=== PATIENT | male | born 1990 | race Caucasian/White ===

== ENCOUNTER 2018-10-18 15:52 | Emergency (ER) | payer BC ==
[2018-10-18 16:02] VITALS: BP 135/91; PULSE 65; TEMP 98.2; BMI 29.6
--- NOTE | 2018-10-18 16:42 | PDOC ---
History of Present Illness - General Chief Complaint: Pain Stated Complaint: RIGHT EAR ACHE 5 DAYS Time Seen by Provider: 10/18/18 16:23 History Source: Patient Exam Limitations: No Limitations - History of Present Illness Initial Comments: HPI: 27 y/o male presenting to ER complaining of right ear pain worsening over the past five days. Symptoms started with a painless sense of fullness that has progressed to constant pain in ear and surrounding area. Denies change in pain with position. Denies drainage from the ear. Has not trialed OTC medication for symptoms. Denies recent submersion of head. Denies h/o of ear infections. Endorses frequent Q-Tip usage. PCP: None Medical Hx: - Pt denies past medical history. Denies prescription medications. Surgical Hx: - Pt denies past surgical history. Past History - Past Medical History Allergies/Adverse Reactions: Allergies Allergy/AdvReac Type Severity Reaction Status Date / Time No Known Allergies Allergy Unverified 10/18/18 15:53 Home Medications: Ambulatory Orders Amox-Tr/K Cl [Augmentin - 875Mg Tablet] 1 tab PO BID #14 tablet 10/18/18 Ciprofloxacin HCl/Dexameth [Ciprodex Otic Suspension] 4 drop AD BID 7 Days #1 bottle 10/18/18 COPD: No Other medical history: denies - Suicide/Smoking/Psychosocial Hx Smoking History: Never smoked Information on smoking cessation initiated: No Hx Alcohol Use: Yes (social) Drug/Substance Use Hx: No Review of Systems - Review of Systems Able to Perform ROS?: Yes Comments:: In addition to that documented in the HPI above, the additional ROS was obtained : Constitutional: Denies fevers, chills, or syncope Head: Endorses hearing changes on right side. Denies vision changes ENMT: Denies sore throat or difficulty swallowing CV: Denies chest pain Resp: Denies SOB GI: Denies vomiting or diarrhea : Denies painful urination MSK: Denies recent trauma Skin: Denies new rashes Neuro: Denies new numbness or tingling or weakness Endocrine: Denies polyuria Heme: Denies bleeding or bruising *Physical Exam - Vital Signs Last Vital Signs Temp Pulse Resp BP Pulse Ox 98.2 F 65 16 135/91 99 10/18/18 15:53 10/18/18 15:53 10/18/18 15:53 10/18/18 15:53 10/18/18 15:53 - Physical Exam Comments: Constitutional: Well-developed, well-nourished adult male in no acute distress or obvious discomfort. Found sitting upright on hospital bed. Alert and oriented x4. Answered all questions appropriately and completely. Speech was non -labored, non-pressured. Head: Normocephalic. No obvious external signs of trauma. Eyes: Sclerae white. Ears: Right external auditory canal is erythematous and edematous. Tympanic membrane bulging with effusion. Tenderness when tugging inferiorly on ear lobe. No tenderness to mastoid process. Left external auditory canal unremarkable. Hearing grossly intact. Nose: No nasal discharge. Throat: Oral cavity and pharynx normal. No inflammation, swelling, exudate, or lesions. Teeth and gingiva in good general condition. Neck: Supple, trachea is midline. Cardiovascular / Chest: Regular rate and regular rhythm. No murmur, rubs, clicks, or gallops. Peripheral pulses: radial pulses full. Respiratory: Breathing unlabored. Equal chest rise and fall. Clear to auscultation bilaterally. No stridor, no wheezing, no rhonchi. Neuro: Alert and oriented. Moving all four extremities spontaneously. Gait normal. Observed walking through the department unassisted without difficulty. Skin: Warm, dry, and intact. Psych: Affect: appropriate. Mood: normal. Moderate Sedation - Procedure Monitoring Vital Signs: Procedure Monitoring Vital Signs Temperature 98.2 F 10/18/18 15:53 Pulse Rate 65 10/18/18 15:53 Respiratory Rate 16 10/18/18 15:53 Blood Pressure 135/91 10/18/18 15:53 O2 Sat by Pulse Oximetry (%) 99 10/18/18 15:53 Medical Decision Making - Medical Decision Making *Reviewed vital signs, nursing notes, and prior visit documentation (if available). 27 y/o male presenting with R ear pain x5 days. Afebrile. Vitals unremarkable for hypotension or tachycardia. Physical exam as described above. Suspect likely otitis externa and media. No signs/symptoms of systemic infection. Will prescribe 7 day course of Augmentin and Ciprodex. First dose of Augmentin and PO Tylenol administered in the department. Discussed physical exam findings with pt. Answered all questions. Provided return precautions. Pt expressed verbal understanding and agreement with plan to discharge home with outpatient follow up. Referred to [facility] resident clinic for PCP. Also provided ENT referral. *DC/Admit/Observation/Transfer Diagnosis at time of Disposition: Otitis media Qualifiers: Otitis media type: unspecified Chronicity: acute Qualified Code(s): H66.90 - Otitis media, unspecified, unspecified ear Otitis externa Qualifiers: Otitis externa type: unspecified type Chronicity: acute Laterality: right Qualified Code(s): H60.501 - Unspecified acute noninfective otitis externa, right ear - Discharge Dispostion Disposition: HOME Condition at time of disposition: Good Decision to Admit order: No - Prescriptions Prescriptions: Amox-Tr/K Cl [Augmentin - 875Mg Tablet] 1 tab PO BID #14 tablet Ciprofloxacin HCl/Dexameth [Ciprodex Otic Suspension] 4 drop AD BID 7 Days #1 bottle - Referrals Referrals: [facility] [place] [Provider Group] Fitz Becerril MD [Staff Physician] - - Patient Instructions Printed Discharge Instructions: DI for Otitis Externa, DI for Ear Pain-Adult Additional Instructions: You were seen today for a right-sided earache. Your have an infection inside of your ear. I have sent two prescriptions to [facility]. The first is for an oral antibiotic and the second is for an antibiotic drop. Use both as directed on the package. I have entered a referral for you to see a primary care physician at [facility] [place] primary care clinic. You will need to call to make an appointment in the next week. The telephone number is [phone]. The address is: [facility] [place] [address] You can also follow up with an Ear, Nose, and Throat physician. I have referred you to Dr. Becerril. You will need to call to make an appointment. The number is included in this packet. You can take over the counter Tylenol or Advil as needed for pain. Take as directed on the package insert. Do not exceed the recommended dosage. Go to the nearest emergency department if your condition worsens or you feel like you need additional emergency evaluation. Print Language: HEBREW - Post Discharge Activity
[2018-10-18] MEDS ORDERED: ACETAMINOPHEN 500 MG TABLET (FP) PO ONE (16:50)
[2018-10-18] MEDS ORDERED: ACETAMINOPHEN 325 MG TABLET (FP) ONE (16:53)
[2018-10-18] MEDS ORDERED: AMOX TR/POT CLAV 875MG/125MG TABLETS (FP) PO ONE (17:22)
--- NOTE | 2018-10-18 17:22 | PDOC ---
Attending Attestation - Resident Resident Name: BishopJulian - ED Attending Attestation I have performed the following: I have examined & evaluated the patient, The case was reviewed & discussed with the resident, I agree w/resident's findings & plan, Exceptions are as noted - HPI HPI: 10/18/18 17:23 27yo male with R ear pain. Pt uses q-tips. No f/c. Pt denies sore throat, rhinorrhea, facial pain. Pt denies neck pain. No cp/sob. No abd pain. No recent travel. No sick contacts. No cough. No tongue elevation. No other complaints. - Physicial Exam PE: 10/18/18 17:24 Gen: aaox3, nad heent: R ear canal with redness and swelling, R tm with bulging and erythema/ effusion, posterior auricular lymph node R, L ear tm intact-no effusion, no redness to ear canal, no vesicles, nares clear, posterior pharynx clear neck: supple, no submandibular swelling, no mastoid ttp heart: +s1s2 reg lungs: cta b/l abd: soft, nt/nd +bs ext: no c/c/e skin: no rashes, no erythema neuro: ambulatory with a steady gait, cn ii-xii grossly intact, no focal findings - Medical Decision Making 10/18/18 17:13 I, Dr. Denita Jacobs, DO, attest that this document has been prepared under my direction and personally reviewed by me in its entirety. I further attest, that it accurately reflects all work, treatment, procedures and medical decision -making performed by me. 10/18/18 17:26 a/p: 27yo male with R ear pain -pt with otitis externa and otitis media to R ear -will start ciprodex for otitis externa and amox for media -rx sent to [facility] -first dose given in ED -discussed follow up with ENT and PMD -pt stable for dc to home -pt is nontoxic in appearance
[2018-10-18] MEDS ORDERED: AMOX TR/POT CLAV 875MG/125MG TABLETS (FP) ONE (17:25)
== END 2018-10-18 17:30 | disposition home or self-care (01) ==
LOC: FER 15:52
DX: H66.90 Otitis media, unspecified, unspecified ear (principal); H60.501 Unspecified acute noninfective otitis externa, right ear
CPT/HCPCS: 99281-25